=== PATIENT | female | born 1990 | race Caucasian/White ===

== ENCOUNTER 2017-04-24 14:24 | Emergency (ER) | payer OTHER ==
[~2017-04-24] VITALS: Ht 149.9 cm; Wt 61.4 kg
[~2017-04-24 14:24] MED LIST: PREN1TAB26 PO
[2017-04-24] MEDS ORDERED: DEXAMETHASONE SOD PHOS 4 MG/ML 5 ML VIAL IM ONE (17:15)
[2017-04-24] MEDS ORDERED: IBUPROFEN 800 MG TABLET PO ONE (17:30)
[2017-04-24] MEDS ORDERED: ACETAMINOPHEN 325 MG TABLET PO ONE (18:30)
[2017-04-24 19:32] VITALS: BP 120/71
== END 2017-04-24 19:36 | disposition home or self-care (01) ==
LOC: EMS 14:26
DX: J02.8 Acute pharyngitis due to other specified organisms (principal); R50.9 Fever, unspecified; J35.1 Hypertrophy of tonsils
CPT/HCPCS: 87430; 96372; 99283; J1100

== ENCOUNTER 2018-01-15 02:24 | Emergency (ER) | payer OTHER ==
[~2018-01-15] VITALS: Ht 160 cm; Wt 57.8 kg
[2018-01-15] MEDS ORDERED: QUET100T PO (02:28)
[2018-01-15] MEDS ORDERED: SODIUM CHLORIDE 0.9% 1,000 ML IV ONE (02:30)
[2018-01-15] MEDS ORDERED: PERTUSS(ACELL),DIPH,TET VAC/PF 0.5 ML VIAL IM ONE (02:30)
[2018-01-15] MEDS ORDERED: CeFAZolin 1 GM/DEXTROSE 50 ML IV ONE (02:30)
[2018-01-15 02:42] VITALS: BP 127/80
[2018-01-15] MEDS ORDERED: CeFAZolin SODIUM 1 GM in DEXTROSE 5%-WATER 10 ML IV SCH (02:45)
== END 2018-01-15 03:01 | disposition short-term general hospital (02) ==
LOC: EMS 02:24
DX: S31.114A Laceration without foreign body of abdominal wall, left lower quadrant without penetration into peritoneal cavity, initial encounter (principal); W26.9XXA Contact with unspecified sharp object(s), initial encounter; Y93.89 Activity, other specified; Y92.89 Other specified places as the place of occurrence of the external cause; Y99.8 Other external cause status
CPT/HCPCS: 90471; 90715; 96374; 99291; J0690; J7030; J7060

== ENCOUNTER 2021-11-24 18:07 | Emergency (ER) | payer MEDICAID, OTHER ==
[~2021-11-24] VITALS: Ht 152.4 cm; Wt 77.3 kg
[~2021-11-24 18:07] MED LIST changes: -PREN1TAB26 PO; +QUET100T PO
[2021-11-24] MEDS ORDERED: DEXAMETHASONE 4 MG TABLET PO ONE (20:15)
[2021-11-24] MEDS ORDERED: PENICILLIN V POTASSIUM 500 MG TABLET PO ONE (20:15)
[2021-11-24] MEDS ORDERED: IBUPROFEN 600 MG TABLET PO ONE (20:15)
[2021-11-24] MEDS ORDERED: IBUP-2070 PO (20:32)
[2021-11-24] MEDS ORDERED: PENI500T2 PO (20:32)
[2021-11-24 20:49] VITALS: BP 125/81
== END 2021-11-24 21:12 | disposition home or self-care (01) ==
LOC: EMS 18:15
DX: J03.90 Acute tonsillitis, unspecified (principal); F17.210 Nicotine dependence, cigarettes, uncomplicated; Z88.5 Allergy status to narcotic agent
CPT/HCPCS: 99284; J8540; Z7502; Z7610

== ENCOUNTER 2024-02-23 02:28 | Emergency (ER) | payer MEDICAID, OTHER ==
[~2024-02-23] VITALS: Ht 149.9 cm; Wt 85.9 kg
[~2024-02-23 02:28] MED LIST changes: +IBUP-1492 PO; +PENI500T2 PO
[2024-02-23 02:46] VITALS: BP 146/83; PULSE 72; RESP 16; TEMP 98.5
[2024-02-23] MEDS ORDERED: AMOX250C4 PO (04:30)
[2024-02-23] MEDS: PERTUSS(ACELL),DIPH,TET/PF 0.5 ML SYRINGE [ADULT] IM. ONE (04:43)
== END 2024-02-23 04:47 | disposition home or self-care (01) ==
LOC: EMS 02:28
DX: S61.236A Puncture wound without foreign body of right little finger without damage to nail, initial encounter (principal); J45.909 Unspecified asthma, uncomplicated; Z98.890 Other specified postprocedural states; Z88.8 Allergy status to other drugs, medicaments and biological substances; W26.8XXA Contact with other sharp object(s), not elsewhere classified, initial encounter; Y93.89 Activity, other specified; Y92.89 Other specified places as the place of occurrence of the external cause; Y99.8 Other external cause status
CPT/HCPCS: 90471; 90715; 99283